=== PATIENT | female | born 1970 | race Caucasian/White ===

== ENCOUNTER → 2024-12-20 | Outpatient (CLI) | payer MEDICAID, SELFPAY ==
--- NOTE | 2024-12-20 11:00 | XR_ITS ---
Examination: CT abdomen with intravenous contrast CT pelvis with intravenous contrast 2-D coronal reconstructions 2-D sagittal reconstructions Date and time of exam:December 20, 2024 at 11:15 AM Indications: Pelvic pain left lower abdominal pain constipation one year Comparison: December 16, 2023. CTDI: vol (mGy) 13.1 DLP: (mGycm) 392 Technique: Multiple axial sections of the abdomen and pelvis have been obtained. 64 slice high-resolution scanner used. 3 mm axial sections have been obtained, post intravenous injection 60 cc Isovue-370 2-D sagittal, coronal reconstructions obtained. Low dose protocols were performed. One or more of the following dose reduction techniques were used; automated exposure control, adjustment of the mA and/or KV according to patient size, use of iterative reconstruction technique. Findings: Fatty liver Absent gallbladder No extrahepatic biliary tract dilatation No splenic or pancreatic lesion Moderate renal parenchymal scar formation, no hydronephrosis Heavy abdominal aortic calcification no aneurysmal dilatation No bowel obstruction Normal appendix No diverticulitis No bladder mass or bladder calculi No pelvic mass Impression: Fatty liver Moderate bilateral renal parenchymal scar formation, no hydronephrosis Normal appendix No bowel obstruction diverticulitis or free air
== END | disposition home or self-care (01) ==
LOC: CCTX 11:03
PROVIDERS: PCP Family Medicine; Referring Provider Family Medicine; Visit Provider Family Medicine
DX: K76.0 Fatty (change of) liver, not elsewhere classified (principal); N28.89 Other specified disorders of kidney and ureter
CPT/HCPCS: 74177; A4649; Q9967

== ENCOUNTER 2025-03-13 21:09 | Emergency (ER) | payer MEDICAID, SELFPAY ==
[2025-03-13 21:11] VITALS: BMI 21.4
--- NOTE | 2025-03-13 21:22 | EKG_ITS ---
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
[2025-03-13 22:00] VITALS: BP 111/66; PULSE 99; RESP 18; TEMP 37.3; O2SAT 100
--- NOTE | 2025-03-13 22:10 | XR_ITS ---
Examination: PA chest single view TECHNIQUE: Upright PA chest single view Date and time: March 13, 2025 10:20 PM Comparison 07/24/2015 INDICATIONS: Shortness of breath and leg swelling beginning 2 weeks ago. FINDINGS: Normal heart size Prominent thoracic dextroscoliosis Mild vascular congestion. No lobar pneumonia or pulmonary edema IMPRESSION: Mild vascular congestion
--- NOTE | 2025-03-13 22:14 | PD.EDSOB ---
ED SOB =RME/HPI General Chief Complaint: Ankle/Foot Injury Stated Complaint: ASHOK. ANKLE SWELLING AND RASH TO LEFT FOOT, SOB Time Seen by Provider: 03/13/25 22:10 Arrival date/time: 03/13/25 21:09 54F with history of hypothyroidism and hep C 2/2 drug use presents to ED with 2 days of intermittent SOB and BLE swelling. Patient started a new med (Mavyret) for hep C about 2 weeks ago. Patient denies URI symptoms. Limitations: no limitations Related Data Home Medications ?Medication ?Instructions ?Recorded ?Confirmed ondansetron HCl 4 mg tablet 4 mg PO Q6H PRN Nausea #0 tabs 04/13/16 10/22/22 levothyroxine 50 mcg tablet 50 mcg PO QDAY 10/22/22 10/22/22 omeprazole 20 mg capsule,delayed 20 mg PO QDAY 10/22/22 10/22/22 release oxycodone 10 mg tablet 10 mg PO TID PRN Pain 10/22/22 10/22/22 Allergies Allergy/AdvReac Type Severity Reaction Status Date / Time Penicillins Allergy Severe Swelling Verified 03/13/25 21:10 Review of Systems Review of Systems Systems Reviewed: All systems reviewed, normal except as documented Constitutional Constitutional: Reports system reviewed and no additional complaints, except as documented, Denies fever(s) and Denies headache(s) ENT Ears, Nose, Mouth, and Throat: Denies disequilibrium and Denies headache(s) Cardiovascular Cardiovascular: Reports system reviewed and no additional complaints, except as documented, Denies chest pain and Reports dyspnea Respiratory Respiratory: Reports system reviewed and no additional complaints, except as documented, Reports as per HPI, Denies cough and Reports dyspnea Gastrointestinal Gastrointestinal: Reports system reviewed and no additional complaints, except as documented, Denies abdominal pain, Denies nausea and Denies vomiting Integumentary/Breasts Skin/Breast: Reports as per HPI and Reports skin swelling Neurologic Neurologic: Reports system reviewed and no additional complaints, except as documented, Denies confusion, Denies disequilibrium and Denies headache(s) Psychiatric Psychiatric: Denies confusion Past Medical History Past Medical History NEUROLOGIC: Negative Neurological Disorders or Seizures CARDIAC: Negative Cardiac Disorders, Congestive Heart Failure, Edema, Cellulitis or Varicose Veins RESPIRATORY: Negative Chronic Obstructive Pulmonary Disease (COPD) (SEASONAL BRONCHITIS HAD INHALER LAST USE 1998), Asthma, Tuberculosis, Pulmonary Embolism or Sleep Apnea GASTROINTESTINAL: Positive Gastrointestinal Disorders (DUE TO HEPATITIS C NO TREATMENT), Hepatitis (C NO TREATMENT), Gall Bladder Disease (LAP) and Gastroesophageal Reflux Disease (TAKES MED) GENITOURINARY: Negative Genitourinary Disorders or Renal Disease REPRODUCTIVE: Positive Previous Pregnancies (X5) MUSCULOSKELETAL: Positive Musculoskeletal Disorders, Arthritis, Degenerative Disk Disease, Scoliosis (MILD) and Carpal Tunnel Syndrome (RIGHT) ENDOCRINE: Positive Endocrine Disorders and Hypothyroidism (TAKES MED); Negative Diabetes Mellitus Type 1 or Diabetes Mellitus Type 2 HEMATOLOGIC: Negative Blood Disorders or Sickle Cell Disease PSYCHO/SOCIAL: Positive Depression OTHER HISTORY: Negative Hospitalization, Autoimmune Disease, Shingles, Falls, Blood Transfusions, Blood Transfusion Reaction, Anesthesia Reactions, Chemotherapy, Radiation Therapy, MRSA, Chicken Pox, Measles, Mumps or Cancer Family History FAMILY HISTORY: Positive Family Psychiatric Problems (MOTHER (DEPRESSION,ANXIETY)), Family Respiratory Disorders (MOTHER (COPD)), Family Gastrointestinal Problems (BROTHER (LIVER FAILURE)), Family Cancer (BROTHER (MELANOMA)) and Family Surgery (MOTHER,BROTHER,SISTER); Negative Family Cardiac Disorders or Family Anesthesia Reaction Surgical History SURGICAL: Positive Hysterectomy (TVH WITH ASHOK SALPING) and Tubal Ligation; Negative Cardiac Surgery or Pacemaker Social History SMOKING STATUS: Current every day smoker ED Exam General Limitations: Present no limitations General appearance: Present alert and in no apparent distress Head Head exam: Present atraumatic Eye Eye exam: Present normal appearance, PERRL and EOMI ENT ENT exam: Present normal exam, normal oropharynx and mucous membranes moist Neck Neck exam: Present normal inspection, full ROM and trachea midline Chest Chest inspection: Present normal inspection and symmetric chest wall rise Respiratory Respiratory exam: Present normal lung sounds bilaterally Cardiovascular Cardiovascular exam: Present regular rate, normal rhythm and normal heart sounds Abdominal Exam Abdominal exam: Present soft and normal bowel sounds Extremities Exam Extremities exam: Present full ROM Expanded Lower Extremity Exam Ankle exam: Present full ROM and swelling Foot/toe exam: Present full ROM and swelling Back Exam Back exam: Present normal inspection and full ROM Neurological Exam Neurological exam: Present alert, oriented X3 and CN II-XII intact Psychiatric Psychiatric exam: Present normal affect and normal mood Skin Skin exam: Present warm, dry, intact and normal color Course Quality Measures none Orders Category Date Time Status EKG (ED ONLY) *Do not use* NOW Care 03/13/25 21:22 Completed EKG (ED Only) Stat Exams 03/13/25 21:22 Draft XR chest 1V portable Stat Exams 03/13/25 22:10 Completed B-Type Natriuretic Peptide Stat Lab 03/13/25 22:38 Completed CBC Stat Lab 03/13/25 22:38 Completed Comprehensive Metabolic Panel Stat Lab 03/13/25 22:38 Completed Drug Screen,Urine Stat Lab 03/13/25 22:54 Completed Lactate (Lactic Acid) Stat Lab 03/13/25 22:38 Completed Magnesium Stat Lab 03/13/25 22:38 Completed Procalcitonin Stat Lab 03/13/25 22:38 Completed Troponin I Stat Lab 03/13/25 22:38 Completed Urinalysis Stat Lab 03/13/25 22:54 Completed Furosemide [Lasix] Med 03/13/25 23:38 Discontinued 20 mg PO X1 ONE Vital Signs Vital signs: Vital Signs Temperature 99.2 F 03/13/25 22:00 Pulse Rate 99 03/13/25 22:00 Respiratory Rate 18 03/13/25 22:00 Blood Pressure 111/66 03/13/25 22:00 Pulse Oximetry (%) 100 03/13/25 22:00 Oxygen Delivery Method Room Air 03/13/25 22:00 O2 at 100% on RA and WNLs Shortness of Breath / Dyspnea MDM Narrative MDM Narrative:: 54F with history of hypothyroidism and hep C 2/2 drug use presents to ED with 2 days of intermittent SOB and BLE swelling. Patient started a new med (Mavyret) for hep C about 2 weeks ago. Patient denies URI symptoms. Physical exam reveals bilateral ankle/feet swelling, but no redness or tenderness. Clear lungs. Normal WOB. Patient is afebrile, calm, and alert. EKG is NSR. CXR normal. Normal trop and BNP. CMP unremarkable except for elevated bili, likely side effect from Mavyret. Plalets normal. UA clean. Patient data External records reviewed:: [facility] previous records Clinical information provided by:: patient Social determinants that could affect healthcare access:: substance use Patient has the following chronic illnesses:: hypothyroidism and hep C How is presenting disease/condition affected by chronic disease/condition?: exacerbated by Evaluation data The following diagnostics were reviewed and interpreted by me:: lab results, radiology exam(s) and EKG tracing(s) Lab and/or radiology exams considered but not ordered:: ordered Interpretation Summary: above Medications / Prescriptions Medications or Prescriptions considered but not ordered:: ordered Medication administrations:: Medication Administration History Discontinued Medications Furosemide (Furosemide 20 Mg Tablet) 20 mg PO X1 ONE Stop: 03/13/25 23:39 above Consultations Consultation(s) initiated? (list below): No Diagnosis Shortness of Breath Differential Diagnosis: acute exacerbation of chronic obstructive airways disease, congestive heart failure, community acquired pneumonia, asthma with exacerbation, pulmonary embolism and other Most likely diagnosis given after review of the tests above:: skin swelling and drug adverse effect Admission Indicated Admission indicated?: not indicated Admission Request Was there a request for admission?: No Disposition Plan Disposition Plan: Discharge Discharge Attestation Discharge Attestation: The patient and all family members were given an opportunity to ask questions and understood the discharge instructions. Discharge instructions specifically effects, indications for sooner follow up or return to the emergency department, and the expected course of current diagnosis. Patient condition: Stable Discharge Plan Plan Patient Disposition: HOME (Self Care) Discharge Disposition comment: Stable Prescriptions/Referrals Prescriptions/Med Rec: No Action ondansetron HCl 4 mg Tablet 4 mg PO Q6H PRN (Reason: Nausea) Qty: 0 levothyroxine 50 mcg Tablet 50 mcg PO QDAY omeprazole 20 mg Capsule,Delayed Release(Dr/Ec) 20 mg PO QDAY oxycodone 10 mg Tablet 10 mg PO TID PRN (Reason: Pain) Referrals: Mike Ramires MD [Primary Care Provider] - In 1 week Problem List Clinical Impression: Swelling of skin, Adverse drug effect Patient/Caregiver Discharge Instructions Education Materials: ED Drug Reaction, Other Additional Instructions: Please follow-up with PCP within 24-48 hours and return immediately if symptoms worsen. Print Language: French Stand Alone Forms: Patient Portal Info Letter PA/[employer] Supervising Physician RUBIN/GLENN Supervising Physician: Dr. Barcenas
[2025-03-13 22:47] LABS: Basophils % (Auto) 0 % (0-2.5); Eosinophils % (Auto) 0 % (0-10); Hematocrit 29.1 % (36.0-46.0); Hemoglobin 10.1 g/dL (12.0-16.0); Immature Granulocytes % (Auto) 1 % (0-0); Immature Granulocytes Auto 0.05 Thou/mm3 (0.00-0.00); Lymphocytes # (Auto) 2.5 Thou/mm3 (1.0-4.8); Lymphocytes % (Auto) 26 % (10-50); Mean Corpuscular HGB Conc 34.7 g/dl (31.0-37.0); Mean Corpuscular Hemoglobin 28.3 pg (25.0-35.0); Mean Corpuscular Volume 82 fL (80-100); Monocytes # (Auto) 0.8 Thou/mm3 (0.0-0.8); Monocytes % (Auto) 8 % (0-12); Neutrophils # (Auto) 6.2 Thou/mm3 (1.8-7.7); Neutrophils % (Auto) 65 % (37-80); Nucleated Red Blood Cell % 0 /100 WBC (0); Platelet Count 159 Thou/mm3 (140-440); RDW Standard Deviation 65.3 fL (36.4-46.3); Red Blood Count 3.57 Miln/mm3 (4.00-5.20); White Blood Count 9.6 Thou/mm3 (3.6-11.0)
[2025-03-13 23:03] LABS: B-Type Natriuretic Peptide 78 pg/mL (0-100)
[2025-03-13 23:09] LABS: Collection Type, Urine Clean Catch
[2025-03-13 23:13] LABS: Alanine Aminotransferase 46 U/L (10-49); Albumin, Serum 3.4 gm/dL (3.5-5.0); Albumin/Globulin Ratio 1.1 (1.2-2.2); Alkaline Phosphatase 176 U/L (46-116); Anion Gap 10 (7-16); Aspartate Amino Transferase 88 U/L (0-34); BUN/Creatinine Ratio 17 Ratio (12-20); Bilirubin,Total 3.3 mg/dL (0.3-1.2); Blood Urea Nitrogen 15 mg/dL (9-23); Calcium 8.1 mg/dL (8.3-10.6); Calcium (Corrected) 8.6 mg/dL (8.5-10.1); Carbon Dioxide 25.1 mMol/L (20.0-31.0); Chloride 103 mMol/L (98-107); Creatinine (Component) 0.9 mg/dL (0.6-1.3); Estimated Creatinine Clearance 60.3 mL/min (>60); Globulin 3.1 gm/dL (2.3-3.5); Glucose 117 mg/dL (74-106); Magnesium 1.8 mg/dL (1.6-2.6); Osmolality,Calculated 277 (275-295); Potassium 3.6 mMol/L (3.4-5.1); Procalcitonin 0.27 ng/ml (0.0-0.49); Sodium 138 mMol/L (136-145); Total Protein 6.5 gm/dL (5.7-8.2); Troponin I < 0.002 ng/mL (0.0-0.045); eGFR > 60 See Note
[2025-03-13 23:23] LABS: Bacteria,Urine Rare; Bilirubin,Urine 1+ (Negative); Blood,Urine Negative (Negative); Clarity,Urine Clear (Clear/Hazy); Color,Urine Yellow (Lt Yel-Yel); Glucose, Urine Negative (Negative); Ketones,Urine Negative (Negative); Leukocyte Esterase,Urine Negative (Negative); Nitrite,Urine Negative (Negative); PH,Urine 6.5 (5.0-7.0); Protein,Urine Negative (Neg - Trace); RBC,Urine 3 /hpf (0-3); Specific Gravity,Urine 1.026 (1.001-1.035); Squamous Epithelial Cell,Urine 1 /hpf (0-5); WBC,Urine < 1 /hpf (0-5)
[2025-03-13 23:26] LABS: Amphetamine/Methamp Scrn,U Negative (Negative); Barbiturate Screen,Urine Negative (Negative); Benzodiazepines Screen,Urine Positive (Negative); Benzoylecgonine Screen, Ur Negative (Negative); Fentanyl Screen,Urine Negative (Negative); Opiate Screen,Urine Positive (Negative); THC Screen,Urine Negative (Negative)
[2025-03-14 00:05] VITALS: BP 111/66; PULSE 99
[2025-03-14] MEDS: Furosemide 40 MG TABLET 20 MG PO (00:05)
== END 2025-03-14 00:05 | disposition home or self-care (01) ==
PROVIDERS: Physician Assistant; Emergency Provider Emergency Medicine; PCP Family Medicine
DX: M25.472 Effusion, left ankle (principal); M25.471 Effusion, right ankle; T50.995A Adverse effect of other drugs, medicaments and biological substances, initial encounter; E03.9 Hypothyroidism, unspecified
CPT/HCPCS: 36415; 71045; 80053; 80307; 81001; 83605; 83735; 83880; 84145; 84484; 85025; 93005; 99283; A9270

== ENCOUNTER → 2025-04-11 | Outpatient (CLI) | payer MEDICAID, SELFPAY ==
--- NOTE | 2025-04-11 15:01 | XR_ITS ---
Examination: Bilateral wrists 6 views TECHNIQUE: AP oblique and lateral atria is total 6 views April 11, 2025 1720 hours INDICATIONS: Bilateral wrist pain after falling 6 months ago. FINDINGS: Moderate osteopenia Bilateral advanced osteoarthritis or carpometacarpal joint space and no fracture or dislocation involving the wrist IMPRESSION: No fracture or dislocation involving the wrist
--- NOTE | 2025-04-11 15:02 | XR_ITS ---
Examination: Bilateral hands, 6 views. Technique: AP, Oblique, Lateral each hand total 6 views Date and time of exam: April 11, 2025 1510 hours INDICATIONS: Bilateral hand pain beginning 12 months ago. FINDINGS: Moderate osteopenia Bilateral advanced osteoarthritis first carpometacarpal joints No fracture or dislocation in the wrist IMPRESSION: Advanced osteoarthritis bilateral first carpometacarpal joints
== END | disposition home or self-care (01) ==
LOC: CDIM 14:54
PROVIDERS: PCP Family Medicine; Referring Provider Nurse Practitioner Gerontology; Visit Provider Nurse Practitioner Gerontology
DX: S69.92XA Unspecified injury of left wrist, hand and finger(s), initial encounter (principal); S69.91XA Unspecified injury of right wrist, hand and finger(s), initial encounter; W19.XXXA Unspecified fall, initial encounter; M19.042 Primary osteoarthritis, left hand; M19.041 Primary osteoarthritis, right hand
CPT/HCPCS: 73110; 73130

== ENCOUNTER → 2025-05-23 | Outpatient (CLI) | payer MEDICAID, SELFPAY ==
--- NOTE | 2025-05-23 10:00 | XR_ITS ---
Examination: CT abdomen, without intravenous contrast. CT pelvis, without intravenous contrast. CT abdomen, with intravenous contrast. CT pelvis, with intravenous contrast. 2-D sagittal coronal reconstructions. Date and time of exam:May 23, 2025 1006 hours Comparison December 20, 2024 INDICATIONS: Diagnosis cirrhosis with left lower abdominal pain noticed beginning one year ago CTDI: vol (mGy) 10.9 DLP: (mGycm) 553 Technique: Multiple 3.0 axial images of the abdomen and pelvis without intravenous contrast, 3.0 mm slice thickness. Multiple 3.0 postcontrast images abdomen and pelvis also obtained, post intravenous injection 60 cc Isovue-370. 2-D sagittal and coronal reconstructions. Low dose protocols were performed. One or more of the following dose reduction techniques were used; automated exposure control, adjustment of the mA and/or KV according to patient size, use of iterative reconstruction technique. Findings: Liver irregular in contour Borderline splenomegaly Absent gallbladder No extra hepatic biliary tract dilatation No pancreatic or adrenal mass No renal or ureteral calculi, no hydronephrosis Aortic calcification no aneurysmal dilatation No bowel obstruction Normal appendix Colonic diverticulosis, no diverticulitis Urinary bladder intact Moderate osteopenia with prominent lumbar levoscoliosis IMPRESSION: Cirrhosis Borderline splenomegaly No extrahepatic biliary tract dilatation Normal appendix No bowel obstruction diverticulitis or free air
== END | disposition home or self-care (01) ==
LOC: CCTX 09:36
PROVIDERS: Referring Provider Internal Medicine Gastroenterology; Visit Provider Internal Medicine Gastroenterology
DX: K74.60 Unspecified cirrhosis of liver (principal); R63.4 Abnormal weight loss; R16.1 Splenomegaly, not elsewhere classified
CPT/HCPCS: 74178; A4649; Q9967

== ENCOUNTER → 2025-08-29 | Outpatient (CLI) | payer MEDICAID, SELFPAY ==
--- NOTE | 2025-08-29 15:04 | XR_ITS ---
Examination: Abdomen sonogram, complete Date and time of exam: August 29, 2025, 1530 hours INDICATIONS: Diagnosis chronic viral hepatitis C, cirrhosis of liver diagnosed 4 months ago, with left lower abdominal pain.. Technique: Multiple real-time grayscale transabdominal sonographic images of the abdomen have been obtained. Findings: Absent gallbladder Common bile duct 0.6 cm Aorta not enlarged Liver 15.2 cm fatty infiltration no focal liver lesions Normal hepatopetal portal venous flow Patent IVC Right kidney 10.1 cm cortex 1.5 cm Left kidney 10.0 cm renal cortex 1.4 cm Moderate renal scar formation Spleen 11.2 cm IMPRESSION: Normal common bile duct Liver normal size fatty infiltration no focal liver lesions Bilateral renal cortical thinning Moderate bilateral renal scar formation
== END | disposition home or self-care (01) ==
LOC: CDIM 14:38
PROVIDERS: Referring Provider Internal Medicine Gastroenterology; Visit Provider Internal Medicine Gastroenterology
DX: K76.0 Fatty (change of) liver, not elsewhere classified (principal); N28.89 Other specified disorders of kidney and ureter; B18.2 Chronic viral hepatitis C
CPT/HCPCS: 76700